=== PATIENT | male | born 1985 | race American Indian/Alaskan Native ===

== ENCOUNTER 2016-08-17 12:09 | Emergency (ER) | payer OTHER ==
[2016-08-17 12:49] LABS: Hemoglobin 14.4 gm/dl (11.8-15.2); Mean Corpuscular HGB Conc 34 % (32-34); Mean Corpuscular Hemoglobin 30 pg (28-32); Mean Corpuscular Volume 87 fl (84-94); Platelet Count 173 K/mm3 (140-440); Red Blood Count 4.81 M/mm3 (3.65-5.03); Red Cell Distribution Width 13.5 % (13.2-15.2); White Blood Count 4.5 K/mm3 (4.5-11.0)
[2016-08-17 13:06] LABS: Blood Urea Nitrogen 13 mg/dL (9-20); Calcium 8.8 mg/dL (8.4-10.2); Carbon Dioxide 24 mmol/L (22-30); Chloride 99.3 mmol/L (98-107); Glucose 153 mg/dL (75-100); Potassium 3.9 mmol/L (3.6-5.0); Sodium 138 mmol/L (137-145)
[2016-08-17 13:07] LABS: Anion Gap 19 mmol/L
[2016-08-17 13:50] LABS: Basophils % (Manual) 0 % (0.0-1.8); Blastocytes % (Manual) 0 %
[2016-08-17 13:51] LABS: Diff Status Complete; Large Platelets Few; Platelet Estimate Appears Decreased; RBC Morphology Normal
--- NOTE | 2016-08-17 20:05 | Emergency Department Report ---
ED General Adult HPI - General Chief complaint: Chest Pain Stated complaint: CHEST PAIN/DIZZINES/COUGHING/FEVER Time Seen by Provider: 08/17/16 19:49 Source: patient Mode of arrival: Ambulatory Limitations: No Limitations - History of Present Illness Initial comments: This is a pleasant 31-year-old gentleman who indicates on he had an event where he was feeling some generalized malaise. He also had some scratchiness in his throat. He also indicated having a slight cough. He indicates through the course of the day he had a sensation of warmth come over him several times on one of these occasions he insisted statistically it up and felt the warmth and then went to ground. His . He was unresponsive for just a few seconds after going to ground and then was appropriate right away. The headache associated with this. He did report some chest tightness at the time of the event. He states that quickly passed spell denies any chest tightness or throughout the day today. He is not had any symptoms whatsoever today actually. Today due to request of his . Denies any head trauma. Onset/Timin -: Gradual, days(s) Location: head, chest Radiation: non-radiation Quality: other (pressure) Improves with: none Worsens with: none Treatments Prior to Arrival: none - Related Data Allergies Allergy/AdvReac Type Severity Reaction Status Date / Time No Known Allergies Allergy Unverified 08/17/16 12:22 ED Review of Systems ROS: Stated complaint: CHEST PAIN/DIZZINES/COUGHING/FEVER Other details as noted in HPI Constitutional: malaise. denies: chills, fever Eyes: denies: eye pain, eye discharge, vision change ENT: throat pain. denies: ear pain Respiratory: denies: cough, shortness of breath, wheezing Cardiovascular: chest pain, syncope. denies: palpitations Endocrine: no symptoms reported Gastrointestinal: denies: abdominal pain, nausea, diarrhea Genitourinary: denies: urgency, dysuria Musculoskeletal: denies: back pain, joint swelling, arthralgia Skin: denies: rash, lesions Neurological: denies: headache, weakness, paresthesias Psychiatric: denies: anxiety, depression Hematological/Lymphatic: denies: easy bleeding, easy bruising ED Past Medical Hx - Past Medical History Previous Medical History?: No - Surgical History Additional Surgical History: Hernia repair 2003 - Social History Smoking Status: Current Every Day Smoker Substance Use Type: None ED Physical Exam - General Limitations: No Limitations General appearance: alert, in no apparent distress - Head Head exam: Present: atraumatic, normocephalic - Eye Eye exam: Present: normal appearance - ENT ENT exam: Present: mucous membranes moist - Neck Neck exam: Present: normal inspection - Respiratory Respiratory exam: Present: normal lung sounds bilaterally. Absent: respiratory distress - Cardiovascular Cardiovascular Exam: Present: regular rate, normal rhythm. Absent: systolic murmur, diastolic murmur, rubs, gallop - GI/Abdominal GI/Abdominal exam: Present: soft, normal bowel sounds - Rectal Rectal exam: Present: deferred - Extremities Exam Extremities exam: Present: normal inspection - Back Exam Back exam: Present: normal inspection - Neurological Exam Neurological exam: Present: alert, oriented X3 - Psychiatric Psychiatric exam: Present: normal affect, normal mood - Skin Skin exam: Present: warm, dry, intact, normal color. Absent: rash ED Course Vital Signs 08/17/16 12:23 Temperature 98.2 F Pulse Rate 77 Respiratory 16 Rate Blood Pressure 116/65 O2 Sat by Pulse 100 Oximetry - Reevaluation(s) Reevaluation #1: 08/17/16 20:57 Patient has a completely normal examination for me at this point in time. His symptoms are resolved as well. He is quite comfortable here. He is mostly here again because his insisted upon his being evaluated. I feel this is a completely appropriate given his syncopal episode. My best guess regarding his episode is likely multifactorial including his malaise sensation that likely was I suspect a viral URI and probably some volume depletion. No ectopy is noted on ECG. He has no focal neurologic findings. Is otherwise healthy and well-appearing. Patient is given reassurance that he is safe for home Electrolytes are unremarkable as is CBC. ED Medical Decision Making - Lab Data Result diagrams: 08/17/16 12:37 08/17/16 12:37 - EKG Data -: EKG Interpreted by Me EKG shows normal: sinus rhythm, axis, intervals, QRS complexes, ST-T waves - EKG Data Interpretation: normal EKG Critical care attestation.: If time is entered above; I have spent that time in minutes in the direct care of this critically ill patient, excluding procedure time. ED Disposition Clinical Impression: Syncope Qualifiers: Syncope type: unspecified Qualified Code(s): R55 - Syncope and collapse Disposition: DISCHARGED TO HOME OR SELFCARE Is pt being admited?: No Does the pt Need Aspirin: No Condition: Stable Instructions: Syncope (ED) Additional Instructions: Eat a healthy diet. Drink plenty of fluids. Referrals: PRIMARY CARE, [Primary Care Provider] - 3-5 Days Forms: Work/School Release Form(ED) Time of Disposition: 20:01
[2016-08-17 20:54] VITALS: BP 118/68
== END 2016-08-17 20:35 | disposition home or self-care (01) ==
LOC: ED 12:09
DX: R55 Syncope and collapse (principal); F17.200 Nicotine dependence, unspecified, uncomplicated
CPT/HCPCS: 36415; 80048; 84484; 85007; 85025; 93005; 93010; 99284

== ENCOUNTER 2016-11-24 03:49 | Emergency (ER) | payer OTHER ==
[2016-11-24 04:02] VITALS: BP 132/66
[2016-11-24] MEDS ORDERED: TORADOL IM ONE (04:39)
[2016-11-24] MEDS ORDERED: NORCO 5/325 PO ONE (04:39)
--- NOTE | 2016-11-24 04:54 | XRay Report ---
FINAL REPORT PROCEDURE: XR HAND 3 RT TECHNIQUE: RIGHT hand radiographs, AP, lateral, and oblique views. CPT 84599-AB HISTORY: punched wall swelling and pain COMPARISON: No prior studies are available for comparison. FINDINGS: Fracture (s) and/or Dislocation(s): There is a slightly displaced impacted fracture of the head of the 5th metacarpal. There is a slightly displaced impacted fracture at the base of the 4th metacarpal. Remaining osseous structures are intact.. Alignment: Normal . Joint space(s): Normal . Soft tissues: Moderate soft tissue swelling over the medial hand. Bone mineralization: Normal . Foreign bodies: None . IMPRESSION: Impacted fracture head of the 5th metacarpal. Impacted fracture of the base of the 4th metacarpal. There is associated soft tissue swelling along the medial hand..
--- NOTE | 2016-11-24 05:25 | Emergency Department Report ---
ED Upper Extremity Inj HPI - General Chief Complaint: Extremity Injury, Upper Stated Complaint: SWOLLEN R HAND Source: patient Mode of arrival: Ambulatory Limitations: No Limitations - History of Present Illness Initial Comments: 31 year old male presents to ED with right hand pain/swelling x1 day after punching wall. patient is stable, neurologically intact and in no acute distress. Complaint: Injury to:: right -: Sudden Other Extremity Injury: Hand: Right Other Injuries: none Improves With: immobilization Worsens With: none Context: direct blow Associated Symptoms: denies: weakness, numbness, suspects foreign body, nausea/ vomiting - Related Data Previous Rx's Medication Instructions Recorded Last Taken Type Ketorolac [Toradol] 10 mg PO Q6H PRN #20 tablet 11/24/16 Unknown Rx Allergies Allergy/AdvReac Type Severity Reaction Status Date / Time No Known Allergies Allergy Verified 11/24/16 04:02 ED Review of Systems ROS: Stated complaint: SWOLLEN R HAND Other details as noted in HPI Constitutional: denies: chills, fever Eyes: denies: eye pain, eye discharge, vision change ENT: denies: ear pain, throat pain Respiratory: denies: cough, shortness of breath, wheezing Cardiovascular: denies: chest pain, palpitations Endocrine: no symptoms reported Gastrointestinal: denies: abdominal pain, nausea, diarrhea Genitourinary: denies: urgency, dysuria Musculoskeletal: joint swelling, arthralgia. denies: back pain Skin: denies: rash, lesions Neurological: denies: headache, weakness, paresthesias Psychiatric: denies: anxiety, depression Hematological/Lymphatic: denies: easy bleeding, easy bruising ED Past Medical Hx - Past Medical History Previous Medical History?: Yes Additional medical history: mumur - Surgical History Past Surgical History?: Yes Additional Surgical History: Hernia repair 2003 - Social History Smoking Status: Current Every Day Smoker Substance Use Type: None - Medications Home Medications: Home Medications Medication Instructions Recorded Confirmed Last Taken Type Ketorolac [Toradol] 10 mg PO Q6H PRN #20 tablet 11/24/16 Unknown Rx ED Physical Exam - General Limitations: No Limitations General appearance: alert, in no apparent distress - Head Head exam: Present: atraumatic, normocephalic - Eye Eye exam: Present: normal appearance - ENT ENT exam: Present: normal exam, mucous membranes moist - Neck Neck exam: Present: normal inspection, full ROM. Absent: tenderness - Respiratory Respiratory exam: Present: normal lung sounds bilaterally. Absent: respiratory distress - Cardiovascular Cardiovascular Exam: Present: regular rate, normal rhythm. Absent: systolic murmur, diastolic murmur, rubs, gallop - GI/Abdominal GI/Abdominal exam: Present: soft, normal bowel sounds. Absent: tenderness, guarding - Rectal Rectal exam: Present: deferred - Extremities Exam Extremities exam: Present: tenderness - Expanded Upper Extremity Exam Right Shoulder Exam: Present: normal inspection Upper Arm exam: Present: normal inspection Elbow exam: Present: normal inspection Forearm Wrist exam: Present: normal inspection Hand Wrist exam: Present: tenderness, swelling. Absent: abrasion, laceration Neuro motor exam: Present: wrist extension intact, thumb opposition intact Neurosensory exam: Present: 2-point discrimination, radial nerve intact Vascular: Present: normal capillary refill, radial pulse (intact) - Back Exam Back exam: Present: normal inspection, full ROM - Neurological Exam Neurological exam: Present: alert, oriented X3, normal gait - Psychiatric Psychiatric exam: Present: normal affect, normal mood - Skin Skin exam: Present: warm, dry, intact, normal color. Absent: rash ED Course Vital Signs 11/24/16 11/24/16 03:59 05:25 Temperature 99.2 F Pulse Rate 86 Respiratory 18 18 Rate Blood Pressure 132/66 O2 Sat by Pulse 99 Oximetry ED Medical Decision Making - Radiology Data Radiology results: report reviewed xr right hand: Moderate soft tissue swelling over medial hand. Fracture head of the 5th metacarpal. Fracture of the base of the 4th metacarpal. - Medical Decision Making 31 year old male presents with right hand pain/swelling. patient has positive boxers fracture. patient was placed in ulnar gutter splint/cast and referred to ortho/hand surgeon to follow up within 24 hours. patient is stable, neurologically intact and in no acute distress. patient has decreased pain after PO and IM pain medications during ED visit. Critical care attestation.: If time is entered above; I have spent that time in minutes in the direct care of this critically ill patient, excluding procedure time. ED Disposition Clinical Impression: Boxer's fracture Qualifiers: Encounter type: initial encounter Fracture type: closed Qualified Code(s): S62.309A - Unspecified fracture of unspecified metacarpal bone, initial encounter for closed fracture Disposition: DISCHARGED TO HOME OR SELFCARE Is pt being admited?: No Does the pt Need Aspirin: No Condition: Stable Instructions: Cast Care (ED), Boxer Fracture (ED) Prescriptions: Ketorolac [Toradol] 10 mg PO Q6H PRN #20 tablet PRN Reason: Pain Referrals: HANANE LEE MD [Staff Physician] - 24 Hours JARED MONTE DO [Referring] - 24 Hours DEREK CISNEROS MD [Staff Physician] - 24 Hours JAQUELINE MEYERS MD [Staff Physician] - 24 Hours Forms: Work/School Release Form(ED)
== END 2016-11-24 05:30 | disposition home or self-care (01) ==
LOC: ED 03:49
DX: S62.316A Displaced fracture of base of fifth metacarpal bone, right hand, initial encounter for closed fracture (principal); S62.314A Displaced fracture of base of fourth metacarpal bone, right hand, initial encounter for closed fracture; W22.01XA Walked into wall, initial encounter; Y93.9 Activity, unspecified; Y92.89 Other specified places as the place of occurrence of the external cause; Y99.9 Unspecified external cause status
CPT/HCPCS: 29125; 73130; 96372; 99283; J1885

== ENCOUNTER 2018-03-31 18:48 | Emergency (ER) | payer OTHER ==
[2018-03-31] MEDS ORDERED: TYLENOL PO ONE (19:18)
[2018-03-31] MEDS ORDERED: TYLENOL ONE (19:22)
--- NOTE | 2018-03-31 21:34 | XRay Report ---
FINAL REPORT PROCEDURE: XR CHEST ROUTINE 2V TECHNIQUE: PA and lateral chest radiographs were obtained. CPT 21460 HISTORY: cough/NAVIN COMPARISON: No prior studies are available for comparison. FINDINGS: Heart: Normal. Mediastinum/Vessels: Normal. Lungs/Pleural space: No infiltrate, effusion, or pneumothorax. Bony thorax: No acute osseous abnormality. Other: IMPRESSION: No pulmonary infiltrates are identified.
[2018-04-01 00:47] VITALS: BP 114/69
--- NOTE | 2018-04-01 01:25 | Emergency Department Report ---
- General Chief Complaint: Upper Respiratory Infection Stated Complaint: HARD TO BREATHE Time Seen by Provider: 04/01/18 01:14 Source: patient Mode of arrival: Ambulatory Limitations: No Limitations - History of Present Illness Initial Comments: 33-year-old -[place] male comes to the emergency room stating is hard to breathe. Patient was to chest congestion body aches cough 4 days. Patient admits to sneezing headache and nasal congestion. He admits to subjective fever denies any nausea vomiting or diarrhea. Patient has not taken anything [id number] such as cold medications. Denies any past medical history currently takes no medications on a daily basis and has no known drug allergies. MD Complaint: cough, rhinorrhea, nasal congestion -: days(s) (4) Consistency: intermittent Context: sick contacts Associated Symptoms: fever, myalgias, headache, rhinorrhea, nasal congestion, sore throat (intermittent), cough, shortness of breath. denies: stiff neck, chest pain, abdominal pain, nausea, vomiting, diarrhea, dysuria Treatments Prior to Arrival: Acetaminophen - Related Data Previous Rx's Medication Instructions Recorded Last Taken Type Ketorolac [Toradol] 10 mg PO Q6H PRN #20 tablet 11/24/16 Unknown Rx Benzonatate [Tessalon Perles] 100 mg PO Q8HR 5 Days #15 capsule 04/01/18 Unknown Rx Dexchlorpheniram/Phenylephrine 1 each PO Q6H #20 tab 04/01/18 Unknown Rx [Rymed Tablet] Fluticasone [Flonase] 1 spray NS QDAY #1 bottle 04/01/18 Unknown Rx Allergies Allergy/AdvReac Type Severity Reaction Status Date / Time No Known Allergies Allergy Verified 11/24/16 04:02 ED Review of Systems ROS: Stated complaint: HARD TO BREATHE Other details as noted in HPI Comment: All other systems reviewed and negative ED Past Medical Hx - Past Medical History Previous Medical History?: Yes Additional medical history: mumur - Surgical History Past Surgical History?: Yes Additional Surgical History: Hernia repair 2003 - Social History Smoking Status: Current Every Day Smoker Substance Use Type: None - Medications Home Medications: Home Medications Medication Instructions Recorded Confirmed Last Taken Type Ketorolac [Toradol] 10 mg PO Q6H PRN #20 tablet 11/24/16 Unknown Rx Benzonatate [Tessalon Perles] 100 mg PO Q8HR 5 Days #15 capsule 04/01/18 Unknown Rx Dexchlorpheniram/Phenylephrine 1 each PO Q6H #20 tab 04/01/18 Unknown Rx [Rymed Tablet] Fluticasone [Flonase] 1 spray NS QDAY #1 bottle 04/01/18 Unknown Rx ED Physical Exam - General Limitations: No Limitations General appearance: alert, in no apparent distress - Head Head exam: Present: atraumatic, normocephalic - Eye Eye exam: Present: EOMI - ENT ENT exam: Present: mucous membranes moist, TM's normal bilaterally - Neck Neck exam: Present: full ROM. Absent: tenderness, lymphadenopathy - Respiratory Respiratory exam: Present: normal lung sounds bilaterally. Absent: respiratory distress, wheezes, accessory muscle use, decreased breath sounds, prolonged expiratory - Cardiovascular Cardiovascular Exam: Present: regular rate, normal rhythm. Absent: systolic murmur, diastolic murmur, rubs, gallop - GI/Abdominal GI/Abdominal exam: Present: soft, normal bowel sounds ED Course Vital Signs 03/31/18 04/01/18 19:13 00:46 Temperature 99.5 F 98.3 F Pulse Rate 102 H 76 Respiratory 18 18 Rate Blood Pressure 127/71 Blood Pressure 114/69 [Left] O2 Sat by Pulse 95 100 Oximetry ED Medical Decision Making - Radiology Data Radiology results: report reviewed FINAL REPORT PROCEDURE: XR CHEST ROUTINE 2V TECHNIQUE: PA and lateral chest radiographs were obtained. CPT 94996 HISTORY: cough/NAVIN COMPARISON: No prior studies are available for comparison. FINDINGS: Heart: Normal. Mediastinum/Vessels: Normal. Lungs/Pleural space: No infiltrate, effusion, or pneumothorax. Bony thorax: No acute osseous abnormality. Other: IMPRESSION: No pulmonary infiltrates are identified. Transcribed By: [facility] Dictated By: HENRY POWER M.D. Electronically Authenticated By: HENRY POWER M.D. Signed Date/Time: 03/31/182132 DD/ 32 TD/TT: 03/31/182132 - Medical Decision Making Patient has been evaluated by this provider fast track. chests x-ray shows normal examination. Discussed patient that this is most likely allergic rhinitis. This patient is sneezing headache, runny nose, nasal congestion. We'll treat patient with Rymed Tessalon Perles, Flonase. Patient is to follow-up with the primary care provider if symptoms persist or gets worse. Critical care attestation.: If time is entered above; I have spent that time in minutes in the direct care of this critically ill patient, excluding procedure time. ED Disposition Clinical Impression: Allergic rhinitis Qualifiers: Allergic rhinitis trigger: unspecified Allergic rhinitis seasonality: unspecified Qualified Code(s): J30.9 - Allergic rhinitis, unspecified Disposition: DC- TO HOME OR SELFCARE Is pt being admited?: No Does the pt Need Aspirin: No Condition: Stable Instructions: Allergic Rhinitis (ED) Additional Instructions: Please take medication as prescribed. If her symptoms persist or gets worse please follow up with her primary care provider. Prescriptions: Benzonatate [Tessalon Perles] 100 mg PO Q8HR 5 Days #15 capsule Dexchlorpheniram/Phenylephrine [Rymed Tablet] 1 each PO Q6H #20 tab Fluticasone [Flonase] 1 spray NS QDAY #1 bottle Referrals: PRIMARY CARE, [Primary Care Provider] - 3-5 Days [facility] [Provider Group] - 3-5 Days Forms: Work/School Release Form(ED)
== END 2018-04-01 01:41 | disposition home or self-care (01) ==
LOC: ED 18:48
DX: J30.9 Allergic rhinitis, unspecified (principal); F17.200 Nicotine dependence, unspecified, uncomplicated
CPT/HCPCS: 71046; 99283